=== PATIENT | male | born 2000 | race Caucasian/White ===

== ENCOUNTER → 2025-05-27 | Outpatient (CLI) | payer OTHER, SELFPAY ==
--- NOTE | 2025-05-27 16:43 | RAD_ITS ---
PROCEDURE: LEFT WRIST MIN 3 VIEWS 05/27/2025 REASON FOR EXAM: PAIN TECHNIQUE: Procedure Code: RADWR Modality: DX Procedure: WRIST MIN 3 VIEWS Laterality: Left COMPARISON: None. FINDINGS: Acute comminuted impacted intra-articular fracture of the distal left radial metaphysis, with slight dorsal angulation. No additional acute fracture or dislocation appreciated. Carpal alignment is maintained. Generalized soft tissue swelling about the wrist. RAD/Wrist min 3 Views IMPRESSION: Comminuted impacted intra-articular fracture of the distal radial metaphysis. Reading Location: [id number]
--- NOTE | 2025-05-27 16:43 | RAD_ITS ---
PROCEDURE: LEFT ELBOW MIN 3 VIEWS 05/27/2025 REASON FOR EXAM: PAIN TECHNIQUE: Procedure Code: RADEL Modality: DX Procedure: ELBOW MIN 3 VIEWS Laterality: Left COMPARISON: None. FINDINGS: No acute fracture or dislocation. Alignment is anatomic. Preserved joint spaces. No joint effusion. No aggressive osseous lesion. No marked soft tissue swelling or radiopaque foreign body. RAD/Elbow min 3 Views IMPRESSION: No acute fracture or dislocation. Reading Location: [id number]
== END | disposition home or self-care (01) ==
LOC: MTRAD 16:43
PROVIDERS: PCP Family Medicine; Referring Provider Physician Assistant; Visit Provider Physician Assistant
DX: M25.532 Pain in left wrist (principal); M25.522 Pain in left elbow
CPT/HCPCS: 73080; 73110